=== PATIENT | female | born 1945 | race Caucasian/White ===

== ENCOUNTER 2017-02-17 12:09 | Inpatient (IN) ==
[2017-02-17] MEDS ORDERED: CARDIZEM IV PRN (12:34)
[2017-02-17] MEDS ORDERED: TYLENOL PO PRN (13:58)
[2017-02-17] MEDS ORDERED: TESSALON PO PRN (13:58)
[2017-02-17] MEDS ORDERED: XANAX PO PRN (13:58)
--- NOTE | 2017-02-17 15:10 | CONSULTATION ---
DATE OF CONSULTATION: 02/17/2017 INDICATION FOR THE CONSULTATION: Heart racing. Chest pain. HISTORY OF PRESENT ILLNESS: Ms Dodd is a 71-year-old white female who [facility] [place]. Apparently the patient had a regularly scheduled visit today at her primary care physician's office. She was apparently sitting in the office and began having some chest tightness radiating up into the neck, as well as heart racing. Reportedly an EKG was done but I do not have that here to review. The patient was told that her heart rate was in the 160s and that she needed to come to the hospital. She subsequently presented the hospital and here her heart rate has been in sinus rhythm with most recent check to be in the 80s. She is not having any chest discomfort presently. She has had a history of PCI in the past with a bare metal stent to her right coronary in 2009. At that time, her symptom was similar to reflux or burning sensation. She says that it is distinctly different from what she had today. Initially she felt that the symptom was secondary to a panic attack. PAST MEDICAL HISTORY: Significant for. 1. Coronary disease with bare metal stenting of the right coronary in 2009. At that time, she had a 2.75 x 28 mm as well as a 3.0 x 32 mm bare metal Vision stent. This was done in the setting of an inferior myocardial infarction. 2. Hypertension. 3. Tobacco abuse. She quit smoking around 3 years ago but currently continues to use an e- cigarette. 4. Hyperlipidemia. 5. Emphysema with home oxygen therapy. SOCIAL HISTORY: No tobacco currently. She quit around 3 years ago. She does not use any alcohol presently. No illicit drugs. FAMILY HISTORY: No early history of coronary disease. REVIEW OF SYSTEMS: A 10-system review of systems is negative except for those things mentioned in the HPI. OBJECTIVE: Vital signs: Her most recent vitals show that she is afebrile. Heart rate was 107 beats per minute, temperature 98.1 degrees, blood pressure 116/75. Generally: She is in no acute distress. HEENT: Oropharynx is moist. Normal dentition. Eye examination shows pink conjunctivae. White sclerae. Neck: Examination shows no obvious thyromegaly or thyroid tenderness. Cardiovascular: She sounds to be in a regular rate and rhythm. She has no obvious murmurs. She has no lower extremity edema. Chest: Clear bilaterally. She has no increased work of breathing. Abdomen: Soft, nontender, nondistended. She has no obvious organomegaly. Skin Exam: Warm and dry throughout without any rashes. Neurological: She is moving all extremities well. Cranial nerves 2-12 are intact without any sensation deficits. Psychiatric: She is alert, oriented, pleasant. She has a normal mood and affect. PERTINENT DATA: Again, I do not have the EKG that she had on presentation to her primary care physician's office. We are awaiting for that to be sent over. I have no chest x-ray as of yet. I have no laboratory data either. ASSESSMENT: Presumed heart racing as well as chest discomfort. PLAN: Her EKG just initially brought here shows atrial fibrillation, rate of 153 beats per minute performed this morning at 7:33 a.m. TSH is to be checked. We will check an echocardiogram as well. We will check cardiac enzymes and if those remain negative then we will likely proceed with myocardial perfusion imaging in the morning. The patient has a CHADS-VASc score of at least 3. She would likely require anticoagulation. We will withhold for now until we get the results of the testing, but if that is normal then we will likely initiate anticoagulation tomorrow. cc: MD José Adams MD
[2017-02-17 15:18] LABS: BASO% 0.2 % (0.0-0.8); EOS# 0.02 X1000 (0.0-0.7); EOS% 0.2 % (0.0-10.0); HEMATOCRIT 40.9 % (37.0-47.0); HEMOGLOBIN 13.2 g/dL (12.0-16.0); IMM GRAN# 0.11 X1000 (0.0-0.04); IMM GRAN% 0.9 % (0.0-0.5); LYMPH# 0.34 X1000 (1.2-3.4); LYMPH% 2.7 % (20.5-51.1); MANUAL DIFF NEEDED? YES; MCH 28.6 PG (27-31); MCHC 32.3 g/dL (33-37); MCV 88.7 FL (81-99); MONO# 0.41 X1000 (0.11-0.59); MONO% 3.3 % (1.7-9.3); MPV 11.4 FL (7.4-10.4); NEUT% 92.7 % (42.2-75.2); PLT 196 X1000 (130-400); RBC 4.61 XMIL (4.2-5.4)
[2017-02-17 15:39] LABS: AGAP 10; BUN 15 mg/dL (8-22); CALCIUM 9.4 mg/dL (8.8-10.2); CHLORIDE 97 mmol/L (98-107); COSMO 274; POTASSIUM 3.6 mmol/L (3.5-5.1); SODIUM 136 mmol/L (136-145); TCO2 29 mmol/L (25-35)
[2017-02-17 15:41] LABS: LYMPHS 2 % (21-51); MONO 2 % (1-9)
[2017-02-17] MEDS: NS 1,000 ML IV SCH (15:59)
[2017-02-17] MEDS: CALTRATE 600 + D PO SCH ×2 (15:59→21:23)
--- NOTE | 2017-02-17 16:06 | EKG Report ---
Test Performed on : 02/17/2017 3:41:26 PM Test Reason : dyspnea Blood Pressure : / mmHG Vent. Rate : 091 BPM Atrial Rate : 091 BPM P-R Int : 148 ms QRS Dur : 074 ms QT Int : 390 ms P-R-T Axes : 059 019 048 degrees QTc Int : 479 ms Normal sinus rhythm. Normal ECG When compared with ECG of 04-DEC-2016 06:28, Nonspecific T wave abnormality, worse in Lateral leads Confirmed by Satnam STOREY, José Lora ([id number]) on 02/18/2017 5:51:26 PM
[2017-02-17] MEDS ORDERED: CALCIUM CARBONATE PO SCH (17:00)
[2017-02-17] MEDS ORDERED: VITAMIN D3 PO SCH (17:00)
[2017-02-17] MEDS ORDERED: CARDIZEM CD PO SCH (20:00)
[2017-02-17] MEDS: ALBUTEROL NEB INH PRN (20:30)
[2017-02-17] MEDS ORDERED: PRAVACHOL PO SCH (21:00)
[2017-02-17] MEDS ORDERED: SYNTHROID PO SCH (21:00)
[2017-02-17] MEDS ORDERED: LOVENOX SUBQ SCH (21:00)
[2017-02-17] MEDS ORDERED: TOPROL XL PO SCH (21:00)
[2017-02-17] MEDS: XANAX PO SCH (21:24)
[2017-02-17] MEDS ORDERED: ASPIRIN PO ONE (22:56)
[2017-02-18 04:01] LABS: URINE SOURCE CLEAN CATCH
[2017-02-18 04:32] LABS: BILIRUBIN URINE NEGATIVE (NEGATIVE); BLOOD URINE TRACE-LYSED (NEGATIVE); CLARITY CLEAR (CLEAR); COLOR YELLOW; GLUCOSE URINE NEGATIVE (NEGATIVE); LEUKOCYTES URINE SMALL (NEGATIVE); NITRITE URINE POSITIVE (NEGATIVE); PH URINE 6.5; PROTEIN URINE NEGATIVE (NEGATIVE); UROBILINOGEN URINE 0.2 EU/dL (0.2-1.0)
[2017-02-18 04:40] LABS: URINE CULTURE NEEDED? YES; URINE EPITHELIAL CELLS <10 /HPF (<10); URINE RBC <10 /HPF (<10); URINE WBC <10 /HPF (<10)
[2017-02-18 05:42] LABS: MANUAL DIFF NEEDED? NO
[2017-02-18 05:47] LABS: BASO% 0.2 % (0.0-0.8); EOS# 0.13 X1000 (0.0-0.7); EOS% 1.1 % (0.0-10.0); HEMATOCRIT 35.3 % (37.0-47.0); HEMOGLOBIN 11.4 g/dL (12.0-16.0); IMM GRAN# 0.09 X1000 (0.0-0.04); IMM GRAN% 0.8 % (0.0-0.5); LYMPH# 1.25 X1000 (1.2-3.4); LYMPH% 10.7 % (20.5-51.1); MCH 28.8 PG (27-31); MCHC 32.3 g/dL (33-37); MCV 89.1 FL (81-99); MONO# 1.18 X1000 (0.11-0.59); MONO% 10.1 % (1.7-9.3); MPV 11.8 FL (7.4-10.4); NEUT% 77.1 % (42.2-75.2); PLT 170 X1000 (130-400); RBC 3.96 XMIL (4.2-5.4)
[2017-02-18 05:58] LABS: INR 0.97; PROTIME 10.2 Seconds (9.2-11.7)
[2017-02-18 06:12] LABS: POTASSIUM 3.9 mmol/L (3.5-5.1)
[2017-02-18] MEDS: PRILOSEC PO SCH ×2 (06:36→09:17)
--- NOTE | 2017-02-18 06:56 | EKG Report ---
Test Performed on : 02/18/2017 06:41:08 AM Test Reason : chest pain, afib Blood Pressure : / mmHG Vent. Rate : 056 BPM Atrial Rate : 056 BPM P-R Int : 162 ms QRS Dur : 072 ms QT Int : 456 ms P-R-T Axes : 072 058 056 degrees QTc Int : 440 ms Sinus bradycardia. Otherwise normal ECG When compared with ECG of 17-FEB-2017 15:41, (Unconfirmed) Vent. rate has decreased BY 35 BPM Confirmed by Satnam STOREY, José Lora ([id number]) on 02/18/2017 5:54:45 PM
[2017-02-18] MEDS ORDERED: SPIRIVA INH SCH (07:30)
[2017-02-18] MEDS: ALBUTEROL NEB INH PRN ×2 (08:02→11:06)
--- NOTE | 2017-02-18 08:51 | Diag Imaging Result Document ---
PROCEDURE NAME: CHEST-2 VIEWS - 02/18/2017 PA AND LATERAL RADIOGRAPH OF THE CHEST: COMPARISON: 02/03/2017. FINDINGS: COPD changes are again noted. They are stable. No new consolidations are identified. There is no definite pleural fluid collection. Cardiac silhouette and central vasculature are grossly unremarkable. IMPRESSION: Stable COPD changes but no definite acute pathology.
[2017-02-18] MEDS ORDERED: ZOLOFT PO SCH (09:00)
[2017-02-18] MEDS ORDERED: MAG-OX PO SCH (09:00)
[2017-02-18] MEDS ORDERED: VITAMIN B-12 PO SCH (09:00)
[2017-02-18] MEDS ORDERED: ASPIRIN PO SCH (09:00)
[2017-02-18] MEDS: XANAX PO SCH (09:16)
[2017-02-18] MEDS: CALTRATE 600 + D PO SCH (09:16)
[2017-02-18 11:54] VITALS: BP 139/68
--- NOTE | 2017-02-18 11:55 | PROGRESS NOTE ---
DATE: 02/18/2017 CHIEF COMPLAINT: Chest pain, irregular heartbeat. SUBJECTIVE: Mrs. Dodd has not had any more episodes of chest pain. No significant shortness of breath. Telemetry shows stable sinus rhythm. OBJECTIVE: Vital signs: Blood pressure is 128/78, pulse 61, temperature 97.8, respirations 15. General: She is awake, alert, oriented, in no distress. HEENT: Unremarkable. Chest: Fairly clear to auscultation and percussion. Cardiac: Heart sounds regular and rhythmic, no gallop or murmur. Abdomen: Nontender, soft, no masses, no hepatomegaly. Extremities: Good pulses, no peripheral edema. Neurological: She moves four extremities. BLOOD WORK TODAY: White count 11,730, hemoglobin 11.4--it was 13.2 on admission, hematocrit 35.3. Her platelet count is 170,000. PT INR is normal. Chemistry: Sodium 141, potassium 3.9, BUN 21, creatinine 1.0--it was 0.8 on admission. TSH is slightly low. Her troponin levels have been 0.311, 0.423. CPKs were negative. IMAGING: Her chest x-ray today is normal. EKGS: The first one when she presented to the hospital on February 17 showed atrial fibrillation with a rapid response. Subsequently, she converted to sinus rhythm at 3:41 p.m. on February 17, is normal. At 6:41 a.m. today, February 18, it is normal with sinus bradycardia. CURRENT MEDICATIONS: Right now she is taking diltiazem 180 mg daily, enoxaparin 40 q.24 h., levothyroxine 75 mcg daily, aspirin 81 mg daily, and metoprolol succinate 50 mg daily. In addition, her other medicines are the ipratropium. IMPRESSION: 1. Patient who presented with atrial fibrillation with rapid response and severe chest pain. She has ruled in for myocardial infarction with positive troponin. That would be consistent with a [id number] myocardial infarction. 2. History of severe coronary heart disease, previous stent in 2009. She had a right coronary artery stent. 3. Long-term history of tobacco abuse, quit smoking about 4 years ago. She has underlying COPD. 4. She has hyperlipidemia. RECOMMENDATION: At this point in time, we are recommending either performing a stress test versus a heart catheterization. The patient and the family are leaning towards having a heart catheterization for definitive diagnosis. The benefits, risks, complications of cardiac catheterization were discussed in detail. They understood and requested to proceed. They wished to have Dr. Pollard perform the study in [place] or one of his trusted associates. At any rate, the patient seems to be hemodynamically stable. We will contact [facility] transfer team, and we will move on with this procedure today. cc: MD José Denise MD
[2017-02-18] MEDS: NS 1,000 ML IV SCH (12:10)
--- NOTE | 2017-02-18 12:51 | ECHO REPORT ---
ORDER DATE: 02/17/2017 INDICATION: New onset atrial fibrillation, hypertension, and hyperlipidemia. M-MODE MEASUREMENTS: Right ventricle: 1.9 cm. Left ventricle end diastole: 4.2 cm. Left ventricle end systole: 2.7 cm. Posterior wall: 0.8 cm. Interventricular septum: 0.8 cm. Left atrium: 2.8 cm. Aortic root: 2.5 cm. SUMMARY OF 2-DIMENSIONAL IMAGIN. Left ventricular function is normal with an ejection fraction of 62%. 2. The right ventricle is normal. 3. The tricuspid valve shows trace regurgitation. 4. The inferior vena cava is not dilated. 5. The pulmonary pressure is estimated at 29 mmHg. 6. The pulmonic valve looks normal. Color flow mapping is unremarkable. 7. The mitral valve looks normal. Color flow mapping indicates trace regurgitation. 8. Pulse wave Doppler of mitral inflow shows reversal of the E and the A wave. 9. Tissue Doppler of septal and lateral mitral annulus averages 9 cm. 10.There is no diastolic dysfunction. 11.The aortic valve looks grossly normal. Color flow mapping is unremarkable. 12.The pulse wave Doppler of pulmonary venous flow is normal. SUMMARY: In summary, this study shows: 1. Normal left ventricular systolic function. 2. No diastolic dysfunction. 3. No pulmonary hypertension. 4. No evidence of any significant valvular abnormality. Clinical correlation is recommended. cc: MD José Denise MD
== END 2017-02-18 12:30 | disposition short-term general hospital (02) ==
LOC: DIRADM 12:09 → 3S 12:33
PROVIDERS: ADMIT Internal Medicine; ATTEND Internal Medicine

== ENCOUNTER 2018-12-21 09:24 | Inpatient (IN) ==
[2018-12-21] MEDS ORDERED: SOLU-MEDROL IV ONE (09:50)
[2018-12-21] MEDS ORDERED: DUONEB (A & A) INH ONE (09:51)
--- NOTE | 2018-12-21 09:55 | PROVIDER DOCUMENTATION ---
HPI-Respiratory General - General Chief Complaint: Shortness of Breath Stated Complaint: sob Time Seen by Provider: 12/21/18 09:50 Source: patient Allergies/Adverse Reactions: Patient Allergies Allergy/AdvReac Type Severity Reaction Status Date / Time No Known Allergies Allergy Verified 12/21/18 13:10 Home Medications: Home Medication List Medication Instructions Recorded Confirmed Last Taken Type Cyanocobalamin (Vitamin B-12) 500 mcg PO DAILY 07/30/15 12/21/18 03/28/18 History [Vitamin B-12] Sertraline [Zoloft] 50 mg PO BID 12/01/16 12/21/18 03/29/18 04:30 History Ginkgo Biloba 60 mg PO DAILY 02/17/17 12/21/18 03/28/18 History Alprazolam [Xanax] 1 mg PO TID 11/06/18 12/21/18 Unknown History Amiodarone [Cordarone] 200 mg PO DAILY 11/06/18 12/21/18 Unknown History Levothyroxine Sodium [Synthroid] 25 mcg PO DAILY 11/06/18 12/21/18 Unknown History Meloxicam 15 mg PO DAILY 11/06/18 12/21/18 Unknown History Metoprolol [Lopressor] 50 mg PO DAILY 11/06/18 12/21/18 Unknown History Omeprazole [Prilosec] 40 mg PO DAILY 11/06/18 12/21/18 Unknown History ROSUVAstatin [Crestor] 40 mg PO DAILY 11/06/18 12/21/18 Unknown History Rivaroxaban [Xarelto] 15 mg PO DAILY 11/06/18 12/21/18 Unknown History Albuterol Sulfate 2.5 mg IH Q6H PRN 12/21/18 12/21/18 Unknown History Albuterol Sulfate [Proair Hfa] 1 puff IH DAILY PRN 12/21/18 12/21/18 Unknown History Ca/D3/Mag Ox/Zinc/Sign Artist/Killian/Bor 1 each PO TID 12/21/18 12/21/18 Unknown History [Calcium 600+D3 Plus Caplet] Formoterol Neb [Perforomist Neb] 20 microgm INH BID 12/21/18 12/21/18 Unknown History Torsemide [Demadex] 10 mg PO DIRECTED 12/21/18 12/21/18 Unknown History - History of Present Illness-Resp Nature of Presenting Problem: Patient is a 73 year old white female with history of severe COPD requiring continuous home oxygen who presents by EMS with worseing SOB sinc this am. Followed by Dr. Mathew. Denies fever. Review of Systems - Adult - REVIEW OF SYSTEMS - ADULT Constitutional: denies: chills, fever Eyes: reports: no symptoms reported Ears, Nose, Mouth & Throat: reports: no symptoms reported Cardiovascular: denies: chest pain Respiratory: reports: cough, wheezing Gastrointestinal: denies: abdominal pain, nausea, vomiting Genitourinary: denies: dysuria Musculoskeletal: reports: no symptoms reported Integumentary: reports: no symptoms reported Neurological: reports: no symptoms reported Psychiatric: reports: no symptoms reported Endocrine: reports: no symptoms reported Hematologic/Lymphatic: reports: no symptoms reported Allergic/Immunologic: reports: no symptoms reported All Other Systems: Reviewed and Negative Past History - Adult - PAST MEDICAL HISTORY-ADULT Review of Records: reports: Old Records Reviewed, Nursing Assessment Review, Medications Reviewed, Social history reviewed & non-contributory. Cardiovascular: reports: NC Respiratory: reports: COPD Psychiatric: reports: anxiety Endocrine/Immune: reports: thyroid disorder - PRIOR SURGERIES/PROCEDURES Surgical/Procedure History: reports: , joint replacement, other ( breast biopsy) Physical Exam-General - PHYSICAL EXAM-ADULT Initial Vital Signs Reviewed: Yes - CONSTITUTIONAL General Appearance: alert, no apparent distress - EYES Eyes: other (clear) - HEAD, EARS, NOSE, MOUTH & THROAT HENMT: moist mucous membranes, normal ENT inspection - NECK Neck: supple - RESPIRATORY Respiratory: no respiratory distress, no accessory muscle use, decreased breath sounds, wheezing - CARDIOVASCULAR Cardiovascular: regular rate, rhythm - GASTROINTESTINAL (ABDOMEN) Abdominal Exam: normal bowel sounds, non tender, soft - LYMPHATIC Lymphatic: no adenopathy - MUSCULOSKELETAL Back Exam: normal inspection, no CVA tenderness Extremity: normal range of motion, non-tender Peripheral Pulses: radial (R): 2+, radial (L): 2+ - SKIN Integumentary: normal color, normal turgor - NEUROLOGIC Neurologic: grossly normal - PSYCHIATRIC Psych/Mental Status: anxious Progress - PLAN OF CARE/RESULTS Progress/Plan/Lab Results: Laboratory Results - last 24 hr 12/21/18 12/21/18 12/21/18 09:52 09:52 09:52 WBC 5.69 RBC 4.36 Hgb 12.9 Hct 40.9 MCV 93.8 MCH 29.6 MCHC 31.5 L RDW Std Deviation 13.9 Plt Count 161 MPV 12.0 H Immature Gran % (Auto) 0.9 H Neut % (Auto) 62.7 Lymph % (Auto) 20.9 [place] % (Auto) 9.7 H Eos % (Auto) 4.7 Baso % (Auto) 1.1 H Immature Gran # (Auto) 0.05 H Neut # (Auto) 3.57 Lymph # (Auto) 1.19 L [place] # (Auto) 0.55 Eos # (Auto) 0.27 Baso # (Auto) 0.06 Specimen Type Sample Site pH pCO2 pO2 HCO3 Base Excess Oxyhemoglobin ABG O2 Sat (Calculated) ABG O2 Saturation ABG Carboxyhemoglobin ABG Methemoglobin Artie Test A-a O2 Difference Total Hemoglobin Lactate Liter Flow Blood Gas Modality FiO2 % Sodium 146 H Potassium 4.3 Chloride 105 Carbon Dioxide 33 Anion Gap 8 BUN 21 Creatinine 1.0 H Estimated GFR/1.73 m2 54 BUN/Creatinine Ratio 21 Glucose 98 Calculated Osmolality 294 Calcium 9.4 Troponin T < 0.010 [id number]-Xtcgzzpjkwo Pept 12/21/18 12/21/18 09:52 10:15 WBC RBC Hgb Hct MCV MCH MCHC RDW Std Deviation Plt Count MPV Immature Gran % (Auto) Neut % (Auto) Lymph % (Auto) [place] % (Auto) Eos % (Auto) Baso % (Auto) Immature Gran # (Auto) Neut # (Auto) Lymph # (Auto) [place] # (Auto) Eos # (Auto) Baso # (Auto) Specimen Type ARTERIAL Sample Site R RADIAL pH 7.35 pCO2 61 H* pO2 114 H HCO3 29.8 H Base Excess 6.3 H Oxyhemoglobin 95.9 ABG O2 Sat (Calculated) 17.2 ABG O2 Saturation 98.1 ABG Carboxyhemoglobin 1.00 ABG Methemoglobin 1.2 Artie Test YES A-a O2 Difference 9.0 Total Hemoglobin 12.6 Lactate 0.60 Liter Flow 3.0 Blood Gas Modality CANNULA FiO2 % 32.0 Sodium Potassium Chloride Carbon Dioxide Anion Gap BUN Creatinine Estimated GFR/1.73 m2 BUN/Creatinine Ratio Glucose Calculated Osmolality Calcium Troponin T [id number]-T-Tgkqklttuyf Pept 659 H Orders Category Date Time Status Admit - [facility] Routine AdmDCTranf 12/21/18 13:38 Active Activity - Up with Assistance ORDERED Care 12/21/18 13:38 Inactive Apply Mechanical Device [QM] ORDERED Care 12/21/18 13:38 Inactive Cardiac Monitoring DIRECTED Care 12/21/18 09:58 Completed DVT/PE Risk Assess/Protocol [QM] ORDERED Care 12/21/18 13:38 Inactive Intake and Output-Strict ORDERED Care 12/21/18 13:38 Inactive Nursing- Assist w/ IS as order ORDERED Care 12/21/18 13:38 Inactive Saline Loc DIRECTED Care 12/21/18 13:38 Inactive Turn, Cough and Deep Breathe Q4HR.AWAKE Care 12/21/18 13:38 Inactive Vital Signs Order Q 4-HR ASSESS Care 12/21/18 13:38 Inactive Z-Document. for Tele Applied ORDERED Care 12/21/18 13:40 Inactive Heart Healthy Diet Diet 12/21/18 13:39 Active CHEST-2 VIEWS [RAD] Routine Exams 12/22/18 09:00 Ordered CHEST-PORTABLE [RAD] Stat Exams 12/21/18 09:57 Completed ABG [RESP] Routine Lab 12/21/18 10:15 Completed ABG [RESP] Routine Lab 12/22/18 05:08 Completed BMP [BASIC METABOLIC PANEL] [CHEM] Stat Lab 12/21/18 09:52 Completed CBC WITH DIFF [HEME] Routine Lab 12/22/18 07:15 Completed CBC WITH ELECTRONIC DIFF [HEME] Stat Lab 12/21/18 09:52 Completed COMPREHENSIVE METABOLIC PANEL [CHEM] Routine Lab 12/22/18 07:15 Completed FOLATE Routine Lab 12/22/18 07:15 Completed MAGNESIUM [CHEM] Routine Lab 12/22/18 07:15 Completed SPUTUM CULTURE WITH GRAM STAIN [RM] Routine Lab 12/21/18 13:39 Uncollected T4 Routine Lab 12/22/18 07:15 Completed TROPONIN T Stat Lab 12/21/18 09:52 Completed TSH Routine Lab 12/22/18 07:15 Completed VITAMIN B12 Routine Lab 12/22/18 07:15 Completed bnp [PRO B-NATRIURETIC PEPTIDE] Stat Lab 12/21/18 09:52 Completed 0.9% Sodium Chloride Inj [Ns] 1,000 ml Med 12/21/18 13:45 Discontinued IV 25 mls/hr Acetaminophen [Tylenol] Med 12/21/18 13:38 Discontinued 650 mg PO Q4-6H PRN PRN Albuterol 2.5MG/Ipratrop 0.5MG [Duoneb (A & A)] Med 12/21/18 09:51 Discontinued 3 ml INH NOW ONE Albuterol 2.5MG/Ipratrop 0.5MG [Duoneb (A & A)] Med 12/21/18 15:30 Discontinued 3 ml INH RTQ4H.WA Alprazolam [Xanax] Med 12/21/18 21:00 Active 1 mg PO TID@0900,1500,2100 Amiodarone [Cordarone] Med 12/22/18 09:00 Active 200 mg PO DAILY Calcium Carb/Vit D3/Minerals [Caltrate Plus Tablet] Med 12/21/18 18:27 Active 1 each PO TID Cyanocobalamin [Vitamin B-12] Med 12/22/18 09:00 Active 500 microgm PO DAILY Dimethicone/Oxybenzone [place] [Blistex Medicated [place] Med 12/21/18 14:08 Discontinued Lip [place]] 1 gm TOP NOW ONE Formoterol Neb [Perforomist Neb] Med 12/21/18 21:00 Active 20 microgm INH BID Furosemide [Lasix] Med 12/21/18 13:38 Discontinued 40 mg IV NOW ONE Guaifenesin E.r. [Mucinex] Med 12/21/18 21:00 Discontinued 1,200 mg PO BID Levothyroxine [Synthroid] Med 12/22/18 07:00 Active 25 microgm PO DAILY@0700 Meloxicam [Mobic] Med 12/22/18 09:00 Active 15 mg PO DAILY Methylprednisolone Sod Succ [Solu-Medrol] Med 12/21/18 09:50 Discontinued 125 mg IV NOW ONE Methylprednisolone Sod Succ [Solu-Medrol] Med 12/21/18 13:45 Discontinued 60 mg IV Q8H Metoprolol [Lopressor] Med 12/22/18 09:00 Active 50 mg PO DAILY Omeprazole [Prilosec] Med 12/22/18 07:00 Active 40 mg PO DAILY@0700 Pantoprazole [Protonix] Med 12/22/18 07:00 Discontinued 40 mg PO DAILY@0700 Patient's Own Med Med 12/22/18 09:00 Active 0 each PO DAILY ROSUVAstatin [Crestor] Med 12/22/18 09:00 Active 40 mg PO DAILY Rivaroxaban [Xarelto] Med 12/22/18 09:00 Active 15 mg PO DAILY Sertraline [Zoloft] Med 12/21/18 21:00 Active 50 mg PO BID Aerosol Treatments Routine Ot 12/21/18 09:51 Completed Aerosol Treatments Routine Ot 12/21/18 13:43 Completed Aerosol Treatments Stat Ot 12/21/18 09:51 Completed Aerosol Treatments Stat Ot 12/21/18 13:43 Completed Incentive Spirometer Q4HR.AWAKE Ot 12/21/18 17:00 Completed Incentive Spirometer Q4HR.AWAKE Ot 12/21/18 21:00 Completed Incentive Spirometer Q4HR.AWAKE Ot 12/22/18 01:00 Completed Incentive Spirometer Q4HR.AWAKE Ot 12/22/18 05:00 Completed Incentive Spirometer Q4HR.AWAKE Ot 12/22/18 09:00 Completed Incentive Spirometer Q4HR.AWAKE Ot 12/22/18 13:00 Completed Oxygen Device Routine Ot 12/21/18 13:38 Completed Peak Flow BID Oth 12/21/18 21:00 Completed Peak Flow BID Ot 12/22/18 09:00 Completed Telemetry [OM.EQ] Routine Oth 12/21/18 13:38 Active Transfer/Admit Order [TRANSFER] Routine Transfer 12/21/18 13:36 Completed Result Diagrams: 12/22/18 07:15 12/22/18 07:15 - CONSULTS/PCP/HOSPITALIST Notification #1 *Consult/PCP/Hospitalist*: DR. Mathew Time Discussed: 12:55 Consult Disposition: Will see in ED Departure - Departure Date of Disposition Decision: 12/21/18 Time of Disposition Decision: 13:00 DIAGNOSIS: Acute exacerbation of chronic obstructive pulmonary disease Disposition: ADMITTED INPATIENT 09 Certified Medical Emergency: Emergent Condition: Stable - Critical Care Note This patient required my direct & personal management of CC.: No Attestation - Physician/ IDRIS Attestation Patient care was provided by Advanced Practice Provider:: No The physician spent face to face time with patient:: Yes Advanced Practice Provider documentation review:: Supervising physician onsite and consulted in the evaluation and care of this patient. The physician did have a face to face encounter with the patient.
--- NOTE | 2018-12-21 10:06 | ED EKG INTERP ---
This chart was entered by Jens Matute Scribe, acting as scribe for Avila Elizalde MD. EKG Interpretation - EKG Time of EKG reading by physician:: 09:34 EKG Read and Signed by:: Avila Elizalde EKG Interpretation (*Must complete 3 of following elements*): Abnormal ( borderline) Rate: 64 Rhythm: nsr [place]: normal QRS: other (low voltage) SD Interval: normal ST Wave: normal Attestation - Physician/ IDRIS Attestation Patient care was provided by Advanced Practice Provider:: No The physician spent face to face time with patient:: Yes Advanced Practice Provider documentation review:: Supervising physician onsite and consulted in the evaluation and care of this patient. The physician did have a face to face encounter with the patient. This chart was documented by the indicated scribe, (Jens Matute Scribe) and accurately reflects the services I performed and decisions made by me, Avila Elizalde MD, as attested by the provider's signature.
--- NOTE | 2018-12-21 10:15 | Diag Imaging Result Doc PS360 ---
EXAM: CHEST-PORTABLE 12/21/2018 HISTORY: sob TECHNIQUE: AP portable at 1004 COMMENT: The appearance of the chest has not changed significantly since 11/10/2018. IMPRESSION: Stable chest. Electronically signed by Jasper Georges 12/21/2018 10:11 AM
[2018-12-21 10:18] LABS: BASO# 0.06 X1000 (0.0-0.2); BASO% 1.1 % (0.0-0.8); EOS# 0.27 X1000 (0.0-0.7); EOS% 4.7 % (0.0-10.0); HEMATOCRIT 40.9 % (37.0-47.0); HEMOGLOBIN 12.9 g/dL (12.0-16.0); IMM GRAN# 0.05 X1000 (0.0-0.04); IMM GRAN% 0.9 % (0.0-0.5); LYMPH# 1.19 X1000 (1.2-3.4); LYMPH% 20.9 % (20.5-51.1); MCH 29.6 PG (27-31); MCHC 31.5 g/dL (33-37); MCV 93.8 FL (81-99); MONO# 0.55 X1000 (0.11-0.59); MONO% 9.7 % (1.7-9.3); NEUT# 3.57 X1000 (1.4-6.5); NEUT% 62.7 % (42.2-75.2); PLT 161 X1000 (130-400); RBC 4.36 XMIL (4.2-5.4); RDW 13.9 % (11.5-14.5); WBC 5.69 X1000 (4.8-10.8)
[2018-12-21 10:30] LABS: ALLEN TEST YES; BE 6.3 mmoll (-3.0-3.0); BLOOD TYPE ARTERIAL; HCO3-(ACT) 29.8 mmoll (20.0-26.0); METHB 1.2 % (0.0-1.5); O2(CT) 17.2 mL/dL (15.0-23.0); O2HB 95.9 % (95.0-99.0); PO2(98.6) 114 mmHg (60-100); SAMPLE BLOOD; SAO2 98.1 % (95.0-100.0); THB 12.6 g/dL (11.5-17.4); pH(98.6) 7.35 (7.35-7.45)
[2018-12-21 10:32] LABS: MODALITY CANNULA
[2018-12-21 10:34] LABS: PCO2(98.6) 61 mmHg (35-45)
[2018-12-21 10:39] LABS: CALCIUM 9.4 mg/dL (8.8-10.2); POTASSIUM 4.3 mmol/L (3.5-5.1)
[2018-12-21] MEDS ORDERED: TYLENOL PO PRN (13:38)
[2018-12-21] MEDS ORDERED: LASIX IV ONE (13:38)
[2018-12-21] MEDS ORDERED: SOLU-MEDROL IV SCH (13:45)
[2018-12-21] MEDS ORDERED: NS 1,000 ML IV SCH (13:45)
--- NOTE | 2018-12-21 14:07 | HISTORY AND PHYSICAL ---
HISTORY OF PRESENT ILLNESS: This is a 73-year-old patient followed by KAY Chavira and she presented with really a couple day history of increased work of breathing, increased swelling in her feet, and O2 saturation dropping. She recently put up to 3 L of nasal cannula. The patient presents with increased work of breathing, hypoxemia, O2 saturation dropping, very short of breath at rest, increased orthopnea. Denies chest pain, denies pleuritic pain. Denies cough or sputum production. No complaints of hematochezia or hematemesis. No nausea or vomiting. No dysuria or gross hematuria. No pleuritic discomfort. PAST MEDICAL HISTORY: 1. History of coronary artery disease status post stent placement 2009. 2. Advanced COPD requiring constant O2, recently went up to 3 L. The patient was treated with a Trilogy machine per Dr. Polanco in the past. 3. Hyperlipidemia. 4. Hypertension. 5. Anxiety and depression. 6. Hypothyroidism. 7. Atrial fibrillation. ALLERGIES: The patient has no known drug allergies. SOCIAL HISTORY: Patient is retired from [employer]. Smoked 1 to 2 packs for over 60 years. Stop smoking about 3 years ago. Denies any illicit drug or alcohol use. FAMILY HISTORY: Mother at age 91 secondary to multiple medical problems. She had a history of stroke and acute myocardial infarction. Father at age 60 secondary to lung cancer. REVIEW OF SYSTEMS: General: No weight gain or loss that she is aware of but she does feel like she retained fluid. HEENT: No change in visual or hearing acuity. Neck: No neck pain. No cervical adenopathy. Respiratory: She has had increased work of breathing, increased dyspnea on exertion, increased orthopnea. Cardiovascular: No chest pain or tachy palpitation. Genitourinary: No gross hematuria or dysuria. Neurologic: No focal complaints. Endocrinologic and Hematologic: No significant history. Skin: No complaints of rashes or lesions. PHYSICAL EXAMINATION: GENERAL: She is awake, alert, oriented x3. Has a nasal cannula. Family members at the bedside. VITAL SIGNS: Temperature 98.7 degrees, pulse 90, respirations 18, blood pressure 152/75. HEENT: Pupils are equal and round. LUNGS: The lungs are clear in all lung [place] but decreased breath sounds both bases. Prolonged expiratory phase. CARDIOVASCULAR: Regular rhythm and rate. PMI downward placed. Carotid, radial, and femoral pulses 2+ and symmetrical. ABDOMEN: Soft, nondistended, nontender. Positive bowel sounds. No hepatosplenomegaly. EXTREMITIES: Without clubbing, cyanosis. She has trace edema from ankle to the mid dominguez and symmetrical. SKIN: Warm and dry. LABORATORY STUDIES: White count 5690, hematocrit 40, platelet count 161,000. Sodium 146, potassium 4.3, chloride 105, BUN 21, creatinine 1.0, calcium 9.4. Blood gases revealed pH is 7.35, pCO2 61, pO2 is 114, O2 saturation 98% and that is on 32% FiO2 3 L nasal cannula. Chest x- ray: Stable chest. Appearance of chest unchanged. No sign of infiltrate. ASSESSMENT AND PLAN: 1. Severe chronic obstructive pulmonary disease with hypoxemia and hypercapnia. We will increase her oxygen to 4 L. She does have thick elevated right-sided pressures or cor pulmonale. We will give her some diuresis being careful. 2. Underlying coronary artery disease. I do not see any sign of active cardiac ischemia. 3. Reactive airway disease and chronic obstructive pulmonary disease exacerbation. We will keep her on her breathing treatments and steroid inhaler. 4. History of osteoarthritis. 5. History of hyperlipidemia. 6. History of depression. 7. History of atrial fibrillation, rate appears to be controlled. She is on Xarelto anticoagulant. We will check an echocardiogram. Her loading supervisor had been requesting one and look at her particular right-sided pressures and left ventricular performance. cc: Artie Mathew MD
[2018-12-21] MEDS ORDERED: BLISTEX MEDICATED BERRY LIP BALM TOP ONE (14:08)
--- NOTE | 2018-12-21 15:06 | EKG Report ---
Test Performed on : 12/21/2018 09:34:29 AM Test Reason : ED. No order in [place] Blood Pressure : / mmHG Vent. Rate : 064 BPM Atrial Rate : 064 BPM P-R Int : 188 ms QRS Dur : 086 ms QT Int : 468 ms P-R-T Axes : 070 037 044 degrees QTc Int : 482 ms Normal sinus rhythm. Low voltage QRS Borderline ECG When compared with ECG of 21-DEC-2018 09:33, (Unconfirmed) No significant change was found Unconfirmed Result
[2018-12-21] MEDS ORDERED: DUONEB (A & A) INH SCH (15:30)
[2018-12-21] MEDS ORDERED: MUCINEX PO SCH (21:00)
[2018-12-21] MEDS: XANAX PO SCH (22:51)
[2018-12-21] MEDS: ZOLOFT PO SCH (22:51)
[2018-12-21] MEDS: CALTRATE PLUS TABLET PO SCH (22:52)
[2018-12-21] MEDS: PERFOROMIST NEB INH SCH (23:37)
[2018-12-22 05:12] LABS: ALLEN TEST YES; BE 6.7 mmoll (-3.0-3.0); BLOOD TYPE ARTERIAL; HCO3-(ACT) 30.1 mmoll (20.0-26.0); METHB 0.8 % (0.0-1.5); O2HB 94.8 % (95.0-99.0); PCO2(98.6) 50 mmHg (35-45); PO2(98.6) 78 mmHg (60-100); SAMPLE BLOOD; SAO2 97.1 % (95.0-100.0); THB 12.7 g/dL (11.5-17.4); pH(98.6) 7.42 (7.35-7.45)
[2018-12-22 05:13] LABS: MODALITY CANNULA
[2018-12-22] MEDS: SYNTHROID PO SCH (06:04)
[2018-12-22] MEDS: PRILOSEC PO SCH (06:04)
[2018-12-22] MEDS ORDERED: PROTONIX PO SCH (07:00)
[2018-12-22 07:51] LABS: BASO# 0.01 X1000 (0.0-0.2); BASO% 0.1 % (0.0-0.8); HEMOGLOBIN 12.7 g/dL (12.0-16.0); IMM GRAN# 0.04 X1000 (0.0-0.04); IMM GRAN% 0.4 % (0.0-0.5); LYMPH# 0.77 X1000 (1.2-3.4); LYMPH% 6.9 % (20.5-51.1); MCH 29.6 PG (27-31); MCHC 32.6 g/dL (33-37); MCV 90.9 FL (81-99); MONO# 0.49 X1000 (0.11-0.59); MONO% 4.4 % (1.7-9.3); MPV 12.2 FL (7.4-10.4); NEUT# 9.92 X1000 (1.4-6.5); NEUT% 88.2 % (42.2-75.2); PLT 162 X1000 (130-400); RBC 4.29 XMIL (4.2-5.4); RDW 13.4 % (11.5-14.5); WBC 11.23 X1000 (4.8-10.8)
[2018-12-22 08:17] LABS: ALB/GLOB RATIO 1.9; ALBUMIN 4.2 g/dL (3.5-5.0); CALCIUM 9.9 mg/dL (8.8-10.2); MAGNESIUM 1.9 mg/dL (1.5-2.7); POTASSIUM 4.4 mmol/L (3.5-5.1); TOTAL BILIRUBIN 0.3 mg/dL (0.20-1.00); TOTAL PROTEIN 6.4 g/dL (6.3-8.3)
[2018-12-22 08:21] LABS: BANDS 2 % (0-1); LYMPHS 8 % (21-51); MONO 4 % (1-9); SEGS 82 % (42-75)
[2018-12-22 09:04] LABS: TSH 1.84 uIUmL (0.27-4.20)
[2018-12-22] MEDS: XANAX PO SCH ×3 (09:26→22:16)
[2018-12-22] MEDS: CRESTOR PO SCH (09:26)
[2018-12-22] MEDS: XARELTO PO SCH (09:27)
[2018-12-22] MEDS: CALTRATE PLUS TABLET PO SCH ×3 (09:27→17:52)
[2018-12-22] MEDS: LOPRESSOR PO SCH (09:27)
[2018-12-22] MEDS: MOBIC PO SCH (09:27)
[2018-12-22] MEDS: VITAMIN B-12 PO SCH (09:27)
[2018-12-22] MEDS: ZOLOFT PO SCH ×2 (09:27→22:17)
[2018-12-22] MEDS: CORDARONE PO SCH (09:27)
[2018-12-22] MEDS: PATIENT'S OWN MED PO SCH (09:35)
[2018-12-22] MEDS: PERFOROMIST NEB INH SCH ×2 (10:00→20:45)
--- NOTE | 2018-12-22 10:05 | PROGRESS NOTE ---
DATE: 12/22/2018 SUBJECTIVE: Ms. Dodd says she feels pretty good, breathing pretty good. Her feet are less swollen. OBJECTIVE: General: Today she is sitting up. She just finished getting her chest x-ray. It was a PA and lateral. Vital signs: Temperature 97.6 degrees, pulse 64, respirations 18, blood pressure 130/69. Eyes: Pupils are equal and round. Lungs: Clear in all lung [place]. Cardiovascular: Regular rhythm and rate without murmur or S3. Abdomen: Soft. Skin: Warm and dry. HEIGHT/WEIGHT: Height 5 feet 6 inches. Weight 130 pounds. DIAGNOSTIC DATA: Renal function looks good. Sodium 140, potassium 4.4, chloride 98, bicarb 31, BUN 28, creatinine 1. Chest x-ray on admission had not changed significantly since 11/10/2018. Stable chest. ASSESSMENT AND PLAN: 1. Severe chronic obstructive pulmonary disease, hypoxemic hypercapnia. We had increased her to 4 L. She seems to be feeling better. Volume status looks good. I gave her a little Lasix yesterday. 2. Coronary artery disease. No sign of active cardiac ischemia. 3. Reactive airway disease with underlying chronic obstructive sleep apnea. So exacerbation of COPD. 4. Osteoarthritis. 5. Hyperlipidemia. 6. Depression. 7. History of atrial fibrillation. Her rate appears well controlled. REVIEW OF HER MEDICATIONS: She is on Xanax 1 mg t.i.d. Cordarone 200 mg a day. Calcium carbonate with vitamin D3, one 3 times a day, vitamin B12 500 mcg daily, Synthroid 25 mcg a day, Mobic 15 mg a day, Lopressor 50 mg a day, Xarelto 15 mg daily, Crestor 40 mg a day, Zoloft 50 mg b.i.d. I think she is on methylprednisone. I think I gave her 125 mg yesterday. I will give her some physical therapy today, hopefully she can go home tomorrow. cc: Artie Mathew MD
--- NOTE | 2018-12-22 10:59 | Diag Imaging Result Doc PS360 ---
EXAM: CHEST-2 VIEWS HISTORY: short of breath TECHNIQUE: Chest two views COMPARISON: 12/21/2018 FINDINGS: The lungs are hyperexpanded. The heart is not enlarged. The vessels are not distended. There are no infiltrates. No pleural effusions. There are multiple midthoracic compression fractures. These were present on the lateral chest x-ray from 06/28/2018 and are unchanged. Mild scoliosis. IMPRESSION: Emphysema. Electronically signed by Lg Agosto 12/22/2018 10:56 AM
[2018-12-22] MEDS: SOLU-MEDROL IV SCH ×2 (11:13→22:17)
[2018-12-22 21:34] LABS: BILIRUBIN URINE NEGATIVE (NEGATIVE); BLOOD URINE NEGATIVE (NEGATIVE); COLOR YELLOW; GLUCOSE URINE NEGATIVE (NEGATIVE); KETONE URINE NEGATIVE (NEGATIVE); LEUKOCYTES URINE NEGATIVE (NEGATIVE); NITRITE URINE NEGATIVE (NEGATIVE); PROTEIN URINE NEGATIVE (NEGATIVE); TURBIDITY URINE CLEAR (CLEAR); URINE SOURCE CLEAN CATCH; UROBILINOGEN URINE NORMAL (NORMAL)
[2018-12-22 21:35] LABS: UR EPITHELIAL CELLS <10 /HPF (<10); URINE BACTERIA NEGATIVE /HPF; URINE RBC <10 /HPF (<10); URINE WBC <10 /HPF (<10)
[2018-12-23] MEDS: PRILOSEC PO SCH (06:14)
[2018-12-23] MEDS: SYNTHROID PO SCH (06:15)
[2018-12-23] MEDS: PATIENT'S OWN MED PO SCH (09:00)
[2018-12-23] MEDS: CALTRATE PLUS TABLET PO SCH ×3 (09:30→16:53)
[2018-12-23] MEDS: LOPRESSOR PO SCH (09:30)
[2018-12-23] MEDS: SOLU-MEDROL IV SCH ×2 (09:30→20:49)
[2018-12-23] MEDS: VITAMIN B-12 PO SCH (09:31)
[2018-12-23] MEDS: XANAX PO SCH ×3 (09:31→20:49)
[2018-12-23] MEDS: ZOLOFT PO SCH ×2 (09:31→20:49)
[2018-12-23] MEDS: XARELTO PO SCH (09:31)
[2018-12-23] MEDS: CORDARONE PO SCH (09:31)
[2018-12-23] MEDS: MOBIC PO SCH (09:31)
[2018-12-23] MEDS: CRESTOR PO SCH (09:31)
--- NOTE | 2018-12-23 09:47 | PROGRESS NOTE ---
DATE: 12/23/2018 SUBJECTIVE: Ms. Dodd is doing better. Her breathing is a little better. She is very weak and is wanting to know about going to inpatient rehab. I think she has been to [facility] before and we are going to get her physical therapy today and evaluate. I will ask social service to look and see. Swelling in her feet has gone down. She is eating well. Bowels are moving. PHYSICAL EXAMINATION: Vital Signs: Temperature 97.6 degrees, pulse 62, respirations 16, blood pressure 144/77. HEENT: Pupils are equal and round. Lungs: Clear in all lung [place]. Cardiovascular Examination: Regular rhythm and rate without murmur or S3. Abdomen: Soft. Skin: Warm and dry. ASSESSMENT AND PLAN: 1. Severe chronic obstructive pulmonary disease, hypoxemic, hypercapnia. We have increased her to 4 L per nasal cannula. She seems to be doing better. Air and gas exchange seem a little better. 2. Coronary artery disease. No active ischemia. 3. Reactive airway disease, underlying chronic obstructive sleep apnea. She presented with exacerbation of chronic obstructive pulmonary disease. 4. Osteoarthritis. 5. Hyperlipidemia. 6. Depression. 7. History of atrial fibrillation, rate is controlled. REVIEW OF HER ORDERS: She is on Xanax 1 mg p.o. t.i.d., Cordarone 200 mg daily, vitamin B12 500 mcg daily. She is on formoterol nebulizer 20 mcg inhalation b.i.d., Synthroid 25 mcg a day, Mobic 15 mg a day, methylprednisone 20 mg IV q.12, Lopressor 50 mg a day, Prilosec 40 mg a day, Xarelto 15 mg a day, Crestor 40 mg a day, and Zoloft 50 mg b.i.d. cc: Artie Mathew MD
[2018-12-23] MEDS: PERFOROMIST NEB INH SCH ×2 (10:15→20:05)
--- NOTE | 2018-12-23 10:56 | ECHO REPORT ---
ORDER DATE: 12/22/2018 INDICATIONS: COPD, hypertension, hyperlipidemia. FINDINGS: 1. Right atrium appears normal in size. 2. Trace tricuspid regurgitation. RV systolic pressure of 29. 3. Normal RV size and systolic function. 4. No significant pulmonic insufficiency. 5. Normal left atrial size at 2.9 cm. 6. No mitral valve prolapse. Trace mitral regurgitation. 7. Normal LV size, end-diastolic dimension of 3.5 cm. Normal wall thicknesses with a posterior and interventricular septal wall thickness of 0.8 cm each. Normal LV systolic function. Estimated EF of 60% to 65% with normal wall motion. 8. Aortic valve opens well. No evidence of stenosis or insufficiency. 9. Aorta appears normal in visualized segments. 10. No pericardial effusion seen. cc: MD Artie Adams MD
[2018-12-24] MEDS: PERFOROMIST NEB INH SCH ×3 (07:42→19:46)
[2018-12-24] MEDS: XANAX PO SCH (10:17)
[2018-12-24] MEDS: ZOLOFT PO SCH ×2 (10:17→21:51)
[2018-12-24] MEDS: MOBIC PO SCH (10:17)
[2018-12-24] MEDS: SYNTHROID PO SCH (10:19)
[2018-12-24] MEDS: PRILOSEC PO SCH (10:31)
[2018-12-24] MEDS: XARELTO PO SCH (10:32)
[2018-12-24] MEDS: LOPRESSOR PO SCH (10:32)
[2018-12-24] MEDS: VITAMIN B-12 PO SCH (10:32)
[2018-12-24] MEDS: CORDARONE PO SCH (10:33)
[2018-12-24] MEDS: SOLU-MEDROL IV SCH ×2 (10:33→21:51)
[2018-12-24] MEDS: CRESTOR PO SCH (10:33)
[2018-12-24] MEDS: CALTRATE 600 + D PO SCH ×3 (10:33→16:38)
[2018-12-24] MEDS: PATIENT'S OWN MED PO SCH (12:00)
--- NOTE | 2018-12-24 14:35 | PROGRESS NOTE ---
DATE: 12/24/2018 SUBJECTIVE: Ms. Dodd is feeling better. She is requesting regular food. Breathing is better and she still would like to see if she can get into rehab. She has a trilogy oxygen. [facility] will not be able to take her; we are checking on [facility]. OBJECTIVE: Vital Signs: Today afebrile with temperature of 98.5 degrees, pulse 64, respirations 15 ,blood pressure 132/72. Eyes: Pupils are equal and round. Lungs: Clear in all lung [place]. Cardiovascular exam: Regular rhythm and rate without murmur or S3. Abdomen: Soft. Skin: Warm and dry. : Urine output was 1000 liters. ASSESSMENT AND PLAN: 1. Severe chronic obstructive pulmonary disease, hypoxemia, hypercapnia. She is up to 4 liters nasal cannula. She is doing better clinically. 2. History of coronary artery disease. No sign of active ischemia. 3. Reactive airway disease, which is improved. No wheezing or evidence of bronchospasm right now. 4. Osteoarthritis. 5. Hyperlipidemia. 6. Depression. 7. History of atrial fibrillation, rate is well controlled. 8. Review of her medications: I do not see any change. The family did ask that I would cut down her Xanax, and so we will cut the Xanax down to 0.5 mg twice daily. They were concerned about some confusion and lethargy, especially this morning. cc: Artie Mathew MD
[2018-12-25] MEDS: SYNTHROID PO SCH (08:00)
[2018-12-25] MEDS: PRILOSEC PO SCH (08:00)
[2018-12-25] MEDS: PERFOROMIST NEB INH SCH ×2 (08:12→19:40)
[2018-12-25] MEDS: SOLU-MEDROL IV SCH ×2 (08:57→20:38)
[2018-12-25] MEDS: MOBIC PO SCH (08:58)
[2018-12-25] MEDS: VITAMIN B-12 PO SCH (08:58)
[2018-12-25] MEDS: PATIENT'S OWN MED PO SCH (08:58)
[2018-12-25] MEDS: XARELTO PO SCH (08:58)
[2018-12-25] MEDS: ZOLOFT PO SCH ×2 (08:58→20:35)
[2018-12-25] MEDS: CRESTOR PO SCH (08:59)
[2018-12-25] MEDS: CORDARONE PO SCH (08:59)
[2018-12-25] MEDS: CALTRATE 600 + D PO SCH ×3 (08:59→16:36)
[2018-12-25] MEDS: LOPRESSOR PO SCH (08:59)
--- NOTE | 2018-12-25 09:25 | PROGRESS NOTE ---
DATE: 12/25/2018 SUBJECTIVE: She has had a good night. Breathing comfortably. She is eating well by report. Bowels are moving. She is on 4 L of nasal cannula. OBJECTIVE: Vital Signs: Temperature 97.9 degrees, pulse 62, respirations 20, blood pressure 121/71. Eyes: Pupils are equal and round. Lungs: Clear in all lung [place]. Cardiovascular exam: Regular rhythm and rate without murmur S3. Abdomen: Soft. Skin: Warm and dry. : Urine output 600 mL. ASSESSMENT AND PLAN: 1. Severe chronic obstructive pulmonary disease with hypoxemia, hypercapnia. She is on 4 L per nasal cannula. Continue her bronchodilators. 2. Coronary artery disease. No sign of active ischemia. 3. Reactive airway disease which is markedly improved. No wheezing or evidence of bronchospasm at this time. 4. Osteoarthritis. 5. Hyperlipidemia. 6. Depression. 7. History of atrial fibrillation, rate is controlled. Review of orders: The patient is on Cordarone 200 mg a day. We have decreased the Xanax to 0.5 mg b.i.d. p.r.n., and she is getting vitamin B 12 500 mcg a day, formoterol 20 mcg b.i.d., Synthroid 25 mcg a day, Mobic 15 mg a day, methylprednisolone 20 mg IV q. 12 hours, Lopressor 50 mg daily, Prilosec 40 mg a day, Xarelto 15 mg a day, Crestor 40 mg a day and Zoloft 50 mg a day. cc: Artie Mathew MD
--- NOTE | 2018-12-25 10:14 | Diag Imaging Result Doc PS360 ---
CHEST-PORTABLE - 12/25/2018 INDICATION: copd COMPARISON: 12/22/2018 FINDINGS: There is some increasing hazy linear atelectasis at the left lung base. No other significant infiltrates. Heart size and pulmonary vascularity are normal. No pneumothorax or pleural effusion. IMPRESSION: Increasing hazy linear atelectasis in the left lung base. Otherwise no change from prior. Electronically signed by Kelechi Gonzalez 12/25/2018 10:12 AM
[2018-12-26] MEDS: SOLU-MEDROL IV SCH ×3 (03:18→21:10)
[2018-12-26] MEDS: PRILOSEC PO SCH (06:40)
[2018-12-26] MEDS: SYNTHROID PO SCH (06:40)
[2018-12-26] MEDS: PERFOROMIST NEB INH SCH ×2 (08:14→20:00)
--- NOTE | 2018-12-26 08:43 | PROGRESS NOTE ---
DATE: 12/26/2018 SUBJECTIVE: She is breathing better. Still her balance is poor. She is eating pretty well. Bowels are moving without any problem. OBJECTIVE: Vitals: Temperature 98.6 degrees, pulse 62, respirations 18, blood pressure 124/72. HEENT: Pupils are equal and round. Lungs: Clear in all lung [place]. Cardiovascular: Regular rhythm and rate without murmur or S3. Abdomen: Soft. Skin: Warm and dry. LABORATORY AND RADIOLOGIC DATA: Urine output is 1400 mL. Chest x-ray today: Increasing hazy linear atelectasis left lung base. Otherwise no change. ASSESSMENT AND PLAN: 1. Severe chronic obstructive pulmonary disease, hypoxemic, hypercapnia, had to increase her O2 to 4 L per nasal cannula. 2. History of coronary artery disease. No sign of active ischemia. 3. Reactive airway disease. This improved. 4. Osteoarthritis. 5. Hyperlipidemia. 6. Depression. 7. History of atrial fibrillation, rate controlled. 8. Nutrition seems to be good at this point. 9. General weakness and poor balance. Looking for rehab. Hopefully she can go tomorrow if we can find a bed. cc: Artie Mathew MD
[2018-12-26] MEDS: XARELTO PO SCH (08:47)
[2018-12-26] MEDS: CALTRATE 600 + D PO SCH ×3 (08:47→17:01)
[2018-12-26] MEDS: ZOLOFT PO SCH ×2 (08:47→21:10)
[2018-12-26] MEDS: CRESTOR PO SCH (08:47)
[2018-12-26] MEDS: MOBIC PO SCH (08:47)
[2018-12-26] MEDS: LOPRESSOR PO SCH (08:47)
[2018-12-26] MEDS: VITAMIN B-12 PO SCH (08:47)
[2018-12-26] MEDS: CORDARONE PO SCH (08:47)
[2018-12-26] MEDS: PATIENT'S OWN MED PO SCH (08:48)
[2018-12-27] MEDS: SYNTHROID PO SCH (06:01)
[2018-12-27] MEDS: PRILOSEC PO SCH (06:01)
[2018-12-27] MEDS: PERFOROMIST NEB INH SCH ×2 (07:53→21:35)
--- NOTE | 2018-12-27 10:01 | PROGRESS NOTE ---
DATE: 12/27/2018 SUBJECTIVE: Ms. Dodd is feeling much better. Her breathing seems to be doing better. Still pretty weak, but she is wearing the Trilogy at night and has nasal O2 during the day. OBJECTIVE: Vital Signs: Temperature 98 degrees, pulse 62, respirations 18, blood pressure 147/63. HEENT: Pupils are equal and round. Lungs: Clear in all lung [place]. No distended neck veins. Cardiovascular: Regular rhythm and rate without murmur or S3. Abdomen: Soft. Skin: Warm and dry. ASSESSMENT AND PLAN: 1. Chronic obstructive pulmonary disease, hypoxemia, hypercapnia. Will increase her oxygen to 4 liters per nasal cannula. Seems to be doing better. She uses Trilogy at night. 2. History of coronary artery disease. No sign of active ischemia. 3. Reactive airway disease, which is improved. 4. Osteoarthritis. 5. Hyperlipidemia. 6. Depression. 7. Atrial fibrillation, rate controlled. We are looking for a possible rehab place. cc: Artie Mathew MD
[2018-12-27] MEDS: SOLU-MEDROL IV SCH ×2 (10:02→22:21)
[2018-12-27] MEDS: CRESTOR PO SCH (10:03)
[2018-12-27] MEDS: MOBIC PO SCH (10:03)
[2018-12-27] MEDS: VITAMIN B-12 PO SCH (10:03)
[2018-12-27] MEDS: ZOLOFT PO SCH ×2 (10:03→22:18)
[2018-12-27] MEDS: CALTRATE 600 + D PO SCH ×3 (10:03→17:57)
[2018-12-27] MEDS: XARELTO PO SCH (10:03)
[2018-12-27] MEDS: CORDARONE PO SCH (10:03)
[2018-12-27] MEDS: LOPRESSOR PO SCH (10:03)
[2018-12-27] MEDS: PATIENT'S OWN MED PO SCH (10:04)
[2018-12-27] MEDS: XANAX PO PRN ×2 (14:09→22:18)
--- NOTE | 2018-12-27 15:47 | DISCHARGE SUMMARY ---
ADMISSION DATE: 12/21/2018 DISCHARGE DATE: ANTICIPATED DISCHARGE DATE: 12/28/2018 This is a patient of KAY Chavira, admitted by me. A 73-year-old who had a couple-day history of increased work of breathing, increased swelling in her feet, O2 saturation dropping, and they had recently bumped her up in her nasal cannula from 2 L to 3 L O2 per minute, but had low O2 saturation, increased work of breathing, and hypoxemia. Denied any chest pain or pleuritic pain. No cough or sputum production. PAST MEDICAL HISTORY: 1. History of coronary artery disease, status post stent placement in 2009. 2. Advanced COPD requiring constant O2, recently went up to 3 L and was started on a Trilogy machine, which she uses under Dr. Polanco's direction. 3. Hyperlipidemia. 4. Hypertension. 5. Anxiety and depression. 6. Hypothyroidism. 7. Atrial fibrillation. ADMISSION DIAGNOSES: 1. Severe chronic obstructive pulmonary disease with hypoxemia and hypercapnia, chronic obstructive pulmonary disease exacerbation suspected. She had elevated pressures in the right side and some cor pulmonale. 2. History of coronary artery disease. No sign of active ischemia. 3. Reactive airway disease. She did have some wheezing and so was started on some bronchodilators and a steroid inhaler. 4. Osteoarthritis. 5. Hyperlipidemia. 6. Depression. 7. Atrial fibrillation. Rate is controlled. DIAGNOSTIC STUDIES: Chest x-ray just to confirm emphysema, no infiltrate. I did give her a dose of Lasix because she had a little more pedal edema. Echocardiogram on 12/22/2018, right atrium normal size, trace tricuspid regurgitation, right ventricular pressure 29, normal right ventricular size and systolic function, normal left ventricular size and ejection fraction 60% to 65%, and the valves seemed to open well. She seemed to improve in her breathing. She was very weak. We did go up to 4 L in her nasal cannula. She felt like her balance was still poor and was very weak, and so wanted to go to rehab. So we will see if we can set her up to go to rehab on 12/28/2018. DISCHARGE MEDICATIONS: She will be on Xanax, which we did reduce 0.5 mg b.i.d. p.r.n., amiodarone 200 mg a day, Caltrate 600 Plus D 1 t.i.d., vitamin B12 500 mcg daily, Perforomist nebulizer, which is formoterol, 20 mcg inhaler I think 1 puff b.i.d., Synthroid 25 mcg daily, Mobic 15 mg a day, Solu-Medrol 20 mg q.12, which will we will decrease to just prednisone 10 mg a day, Lopressor 50 mg a day, Prilosec 40 mg a day, Xarelto 15 mg daily, Crestor 40 mg a day, and Zoloft 50 mg b.i.d. She will be on O2 at 3 L per nasal cannula during the day and then her Trilogy at night. cc: Artie Mathew MD
[2018-12-28] MEDS: PRILOSEC PO SCH ×2 (05:48→07:30)
[2018-12-28] MEDS: SYNTHROID PO SCH ×2 (05:48→07:30)
[2018-12-28] MEDS: PERFOROMIST NEB INH SCH ×2 (06:44→07:52)
[2018-12-28 08:01] VITALS: BP 149/83
[2018-12-28] MEDS: SOLU-MEDROL IV SCH (09:25)
[2018-12-28] MEDS: VITAMIN B-12 PO SCH (09:26)
[2018-12-28] MEDS: LOPRESSOR PO SCH (09:26)
[2018-12-28] MEDS: CORDARONE PO SCH (09:26)
[2018-12-28] MEDS: XARELTO PO SCH (09:26)
[2018-12-28] MEDS: CRESTOR PO SCH (09:26)
[2018-12-28] MEDS: MOBIC PO SCH (09:26)
[2018-12-28] MEDS: ZOLOFT PO SCH (09:26)
[2018-12-28] MEDS: CALTRATE 600 + D PO SCH (09:26)
[2018-12-28] MEDS: XANAX PO PRN (09:32)
== END 2018-12-28 12:30 | DRG 190 ==
LOC: SUPCPDRO → ED 09:24 → EDIPHOLD 14:52 → 3N 17:55
PROVIDERS: ADMIT Emergency Medicine; ATTEND Emergency Medicine
CPT/HCPCS: 71010; 71020; 71045; 71046; 80048; 80053; 81001; 82607; 82746; 82805; 83735; 83880; 84436; 84443; 84484; 85025; 93005; 93306; 94640; 94761; 94762; 94799; 96374; 96375; 96376; 97162; 97167; 97530; 99285; A9270; J1940; J2920; J2930; J7030; J7606